=== PATIENT | male | born 1985 | race Caucasian/White ===

== ENCOUNTER → 2017-01-16 | Outpatient (CLI) | payer BC ==
[2017-01-16 10:26] LABS: HEMATOCRIT 42.2 % (42.0-52.0); HEMOGLOBIN 14.5 g/dl (14.0-18.0); MEAN CELL VOLUME 90.8 fl (80.0-94.0); MEAN CORPUSCULAR HGB 31.2 pg (27.0-31.0); MEAN CORPUSCULAR HGB CONC 34.4 g/dl (33.0-37.0); MEAN PLATELET VOLUME 9.5 fl (9.6-12.3); RED BLOOD COUNT 4.65 10*6/uL (4.50-5.90); RED CELL DISTRI WIDTH 12.1 % (0-14.5); WHITE BLOOD COUNT 6.4 10*3/uL (4.8-10.8)
[2017-01-16 10:58] LABS: ALBUMIN 4.3 gm/dl (3.1-4.5); BUN 21 mg/dl (7-24); CARBON DIOXIDE 29 mmol/L (21-32); CHLORIDE 105 mmol/L (98-107); CHOLESTEROL 136 mg/dL (<200); EST GLOM FILT AFRICAN AMERICAN > 60 ml/min; GLUCOSE 97 mg/dL (65-99); POTASSIUM 3.9 mmol/L (3.5-5.1); SGOT/AST 35 IU/L (3-35); SGPT/ALT 38 U/L (12-78); SODIUM 142 mmol/L (136-145); TRIGLYCERIDES 42 mg/dl (<150); VLDL CHOLESTEROL 8 mg/dL (6-40)
[2017-01-16 11:00] LABS: ALKALINE PHOSPHATASE 68 U/L (45-117); BILIRUBIN, TOTAL 0.5 mg/dl (0.2-1.0); HDL CHOLESTEROL 84 mg/dl (40-60); LDL CHOLESTEROL 44 mg/dL (9-159); TOTAL PROTEIN 7.5 gm/dL (6.4-8.2)
== END | disposition home or self-care (01) ==
LOC: LAB 10:04
PROVIDERS: Family Medicine
DX: Z13.220 Encounter for screening for lipoid disorders (principal); E55.9 Vitamin D deficiency, unspecified; Z86.14 Personal history of Methicillin resistant Staphylococcus aureus infection; Z96.651 Presence of right artificial knee joint

== ENCOUNTER → 2018-08-11 | Outpatient (CLI) | payer BC ==
[2018-08-11 11:26] LABS: HEMATOCRIT 42.3 % (42.0-52.0); HEMOGLOBIN 14.5 g/dl (14.0-18.0); MEAN CELL VOLUME 92.4 fl (80.0-94.0); MEAN CORPUSCULAR HGB 31.7 pg (27.0-31.0); MEAN CORPUSCULAR HGB CONC 34.3 g/dl (33.0-37.0); MEAN PLATELET VOLUME 9.2 fl (9.6-12.3); RED BLOOD COUNT 4.58 10*6/uL (4.50-5.90); WHITE BLOOD COUNT 6.3 10*3/uL (4.8-10.8)
[2018-08-11 11:57] LABS: ALBUMIN 4.3 gm/dl (3.1-4.5); ALKALINE PHOSPHATASE 68 U/L (45-117); BUN 11 mg/dl (7-24); CHLORIDE 104 mmol/L (98-107); CHOLESTEROL 136 mg/dL (<200); CREATININE 1.02 mg/dL (0.70-1.30); HDL CHOLESTEROL 73 mg/dl (40-60); LDL CHOLESTEROL 51 mg/dL (9-159); POTASSIUM 3.6 mmol/L (3.5-5.1); SGOT/AST 19 IU/L (3-35); SGPT/ALT 34 U/L (12-78); SODIUM 140 mmol/L (136-145); TRIGLYCERIDES 61 mg/dl (<150); VLDL CHOLESTEROL 12 mg/dL (6-40)
== END | disposition home or self-care (01) ==
LOC: LAB 10:44
PROVIDERS: Family Medicine
DX: E78.00 Pure hypercholesterolemia, unspecified (principal); B35.8 Other dermatophytoses; L03.90 Cellulitis, unspecified